=== PATIENT | female | born 1970 | race Caucasian/White ===

== ENCOUNTER 2017-11-28 10:51 | Emergency (ER) | payer OTHER, SELFPAY ==
[2017-11-28 11:07] VITALS: BP 152/77; PULSE 82; RESP 16; TEMP 37.2; O2SAT 97
--- NOTE | 2017-11-28 11:14 | DI.RAD_ITS ---
SYMPTOM/DIAGNOSIS: PAIN, S/P FALL RIGHT HAND: Three views were obtained. There is a fracture of the base of the proximal phalanx of the little finger with mild displacement. No additional fracture is seen.
--- NOTE | 2017-11-28 11:17 | W.ED.GENAD ---
Discharge Plan Disposition Patient Disposition: HOME Condition: Stable Discharge Details Chief Complaint: Orthopedic Clinical Impression: Closed fracture of phalanx of right little finger Primary Care Provider: Efraín Bateman ED Provider: Dariel Cooper Home Meds and New Rx's Prescriptions: No Action No Known Home Meds RF: 0 Discharge Instructions Instructions: Finger Fracture (ED) Additional Instructions: call orthopedics Wednesday for an appointment you can take 1000mg tylenol and 600mg ibuprofen every 6 hours for pain as needed Referrals: Ronny Lombardi MD [ [facility] STAFF PHYSICIAN] - Discharge Data Discharge Physician: Dariel Cooper Medical Decision Making PAtient was playing soccer when she tripped and landed on her right hand. Denies hitting her head or having loc. HAs no pain in wrist even on rom and no snuffbox tenderness so doubt injury to the wrist. Will xray the hand to eval for fx though I suspect contusion xray on my read shows proximal pinky fracture. placed in splint, will have her f/u with ortho Differential Diagnosis sprain, strain, contusion HPI General Mode of arrival: ambulatory. Date/Time Provider Initiated Documentation: 11/28/17 11:12. Limitations to Documentation: no limitations. Information obtained by: patient. History of Present Illness 47 year old F presents to the emergency department with the chief complaint of right hand pain, described as moderate, with intensity rated at 5. Quality is described as aching, and is localized to the right and upper extremity. Patient reports no radiation. Patient started experiencing this hour(s) (1) and it has been constant. No relieving factors improve symptom(s), No exacerbating factors reported . Patient notes no other symptoms.. Patient did receive the following treatments prior to arrival, none Related Data Home Medications Medication Instructions Recorded Confirmed Unknown [No Known Home Meds] 11/28/17 11/28/17 Allergies Allergy/AdvReac Type Severity Reaction Status Date / Time Sulfa (Sulfonamide Allergy Intermediate Hives Unverified 11/28/17 11:11 Antibiotics) General Stated Complaint: Orthopedic IZZY: 4 Review of Systems Review of Systems All systems reviewed & are unremarkable except as noted in HPI and below Constitutional Denies chills and Denies fever(s) Cardiovascular Denies dyspnea Respiratory Denies dyspnea Gastrointestinal Denies vomiting Musculoskeletal Denies joint swelling Integumentary/Breasts Denies rash Hematologic/Lymphatic Denies easy bleeding PFSH Family History Mother Heart disease Hyperlipidemia Father Hyperlipidemia Sister Heart disease Sister Substance abuse Heart disease Brother Heart disease Son No problems noted. Daughter Depression FAMILY HISTORY Neoplasm Medical History RUQ pain Social History Smoking/Tobacco Use Status: Current every day Surgical History Cholecystectomy (05/28/16) Exam Const General: no acute distress Orientation: alert HENMT Head: normal to inspection Ears: external ears normal General nose exam: external nose normal Mouth: moist mucous membranes Eyes General: appearance normal, both eyes and all related structures Neck Neck: normal visual inspection Resp Effort & Inspection: normal respiratory effort and able to speak in complete sentences Cardio Rate: regular rate Skin General skin exam: no rashes or lesions noted Neuro General: alert and oriented x3 Extrem General: normal to inspection, full ROM, normal capillary refill and other (tenderness to mid 5th metatarsal and proximal right pinky, full rom of the wrist without pain and no snuffbox tenderness, no visible or palpable deformities) Psych Mental Status: mental status grossly normal Course Vital Signs Temperature 37.2 C 11/28/17 11:07 Pulse 82 11/28/17 11:07 Respiratory Rate 16 11/28/17 11:07 Blood Pressure 152/77 H 11/28/17 11:07 Pulse Oximetry 97 11/28/17 11:07 Temperature 37.2 C 11/28/17 11:07 Temperature Source Temporal Artery Scan 11/28/17 11:07 Pulse 82 11/28/17 11:07 Respiratory Rate 16 11/28/17 11:07 Respiratory Effort Non-Labored 11/28/17 11:09 Blood Pressure 152/77 H 11/28/17 11:07 Pulse Oximetry 97 11/28/17 11:07 Oxygen Delivery Method Room Air 11/28/17 11:07 Oxygen Flow Rate 0 11/28/17 11:07 Pain Level 8 11/28/17 11:10
--- NOTE | 2017-11-28 11:22 | ED.GENADUL_ITS ---
Discharge Plan Disposition Patient Disposition: HOME Condition: Stable Discharge Details Chief Complaint: Orthopedic Clinical Impression: Closed fracture of phalanx of right little finger Primary Care Provider: Efraín Bateman ED Provider: Dariel Cooper Home Meds and New Rx's Prescriptions: No Action No Known Home Meds RF: 0 Discharge Instructions Instructions: Finger Fracture (ED) Additional Instructions: call orthopedics Wednesday for an appointment you can take 1000mg tylenol and 600mg ibuprofen every 6 hours for pain as needed Referrals: Ronny Lombardi MD [ [facility] STAFF PHYSICIAN] - Discharge Data Discharge Physician: Dariel Cooper Medical Decision Making PAtient was playing soccer when she tripped and landed on her right hand. Denies hitting her head or having loc. HAs no pain in wrist even on rom and no snuffbox tenderness so doubt injury to the wrist. Will xray the hand to eval for fx though I suspect contusion xray on my read shows proximal pinky fracture. placed in splint, will have her f /u with ortho Differential Diagnosis sprain, strain, contusion HPI General Mode of arrival: ambulatory . Date/Time Provider Initiated Documentation: 11/28/17 11:12 . Limitations to Documentation: no limitations . Information obtained by: patient . History of Present Illness 47 year old F presents to the emergency department with the chief complaint of right hand pain, described as moderate, with intensity rated at 5. Quality is described as aching, and is localized to the right and upper extremity. Patient reports no radiation. Patient started experiencing this hour(s) (1) and it has been constant. No relieving factors improve symptom(s ), No exacerbating factors reported . Patient notes no other symptoms.. Patient did receive the following treatments prior to arrival, none Related Data Home Medications Medication Instructions Recorded Confirmed Unknown [No Known Home Meds] 11/28/17 11/28/17 Allergies Allergy/AdvReac Type Severity Reaction Status Date / Time Sulfa (Sulfonamide Allergy Intermediate Hives Unverified 11/28/17 11:11 Antibiotics) General Stated Complaint: Orthopedic IZZY: 4 Review of Systems Review of Systems All systems reviewed & are unremarkable except as noted in HPI and below Constitutional Denies chills and Denies fever(s) Cardiovascular Denies dyspnea Respiratory Denies dyspnea Gastrointestinal Denies vomiting Musculoskeletal Denies joint swelling Integumentary/Breasts Denies rash Hematologic/Lymphatic Denies easy bleeding PFSH Family History Mother Heart disease Hyperlipidemia Father Hyperlipidemia Sister Heart disease Sister Substance abuse Heart disease Brother Heart disease Son No problems noted. Daughter Depression FAMILY HISTORY Neoplasm Medical History RUQ pain Social History Smoking/Tobacco Use Status: Current every day Surgical History Cholecystectomy (05/28/16) Exam Const General: no acute distress Orientation: alert HENMT Head: normal to inspection Ears: external ears normal General nose exam: external nose normal Mouth: moist mucous membranes Eyes General: appearance normal, both eyes and all related structures Neck Neck: normal visual inspection Resp Effort & Inspection: normal respiratory effort and able to speak in complete sentences Cardio Rate: regular rate Skin General skin exam: no rashes or lesions noted Neuro General: alert and oriented x3 Extrem General: normal to inspection, full ROM, normal capillary refill and other ( tenderness to mid 5th metatarsal and proximal right pinky, full rom of the wrist without pain and no snuffbox tenderness, no visible or palpable deformities) Psych Mental Status: mental status grossly normal Course Vital Signs Temperature 37.2 C 11/28/17 11:07 Pulse 82 11/28/17 11:07 Respiratory Rate 16 11/28/17 11:07 Blood Pressure 152/77 H 11/28/17 11:07 Pulse Oximetry 97 11/28/17 11:07 Temperature 37.2 C 11/28/17 11:07 Temperature Source Temporal Artery Scan 11/28/17 11:07 Pulse 82 11/28/17 11:07 Respiratory Rate 16 11/28/17 11:07 Respiratory Effort Non-Labored 11/28/17 11:09 Blood Pressure 152/77 H 11/28/17 11:07 Pulse Oximetry 97 11/28/17 11:07 Oxygen Delivery Method Room Air 11/28/17 11:07 Oxygen Flow Rate 0 11/28/17 11:07 Pain Level 8 11/28/17 11:10
== END 2017-11-28 12:14 | disposition home or self-care (01) ==
PROVIDERS: Emergency Provider Emergency Medicine; PCP Family Medicine
DX: S62.646A Nondisplaced fracture of proximal phalanx of right little finger, initial encounter for closed fracture (principal); W01.0XXA Fall on same level from slipping, tripping and stumbling without subsequent striking against object, initial encounter
CPT/HCPCS: 26750; 73130

== ENCOUNTER 2017-12-03 08:50 | Outpatient (CLI) | payer OTHER, SELFPAY ==
--- NOTE | 2017-12-03 08:46 | DI.RAD_ITS ---
SYMPTOM/DIAGNOSIS: F/U FX RIGHT LITTLE FINGER; Three views were obtained and again show a nondisplaced fracture of the base of the proximal phalanx of the little finger with no change in alignment in comparison with examination of 11/28.
== END 2017-12-03 09:10 ==
PROVIDERS: PCP Family Medicine; Visit Provider Physician Assistant
DX: S62.646D Nondisplaced fracture of proximal phalanx of right little finger, subsequent encounter for fracture with routine healing (principal)
CPT/HCPCS: 73140

== ENCOUNTER 2017-12-08 09:38 | Outpatient (CLI) | payer OTHER, SELFPAY ==
--- NOTE | 2017-12-08 09:32 | DI.RAD_ITS ---
SYMPTOM/DIAGNOSIS: F/U FX RIGHT FIFTH FINGER: Comparison is made with right hand dated 11/28/17. There has been no change in the alignment of the fracture of the proximal phalanx which shows some interval healing.
== END 2017-12-08 09:58 ==
PROVIDERS: PCP Family Medicine; Visit Provider Student in an Organized Health Care Education/Training Program
DX: S62.646D Nondisplaced fracture of proximal phalanx of right little finger, subsequent encounter for fracture with routine healing (principal)
CPT/HCPCS: 73140

== ENCOUNTER 2017-12-22 08:32 | Outpatient (CLI) | payer OTHER, SELFPAY ==
--- NOTE | 2017-12-22 08:20 | DI.RAD_ITS ---
SYMPTOM/DIAGNOSIS: F/U FX RIGHT LITTLE FINGER: A nondisplaced fracture of the proximal metaphysis of the proximal phalanx of the right fifth finger is noted with no interval change when compared with the prior study of 12/03/17.
== END 2017-12-22 08:52 ==
PROVIDERS: PCP Family Medicine; Visit Provider Student in an Organized Health Care Education/Training Program
DX: S62.646D Nondisplaced fracture of proximal phalanx of right little finger, subsequent encounter for fracture with routine healing (principal)
CPT/HCPCS: 73140

== ENCOUNTER 2018-06-15 01:14 | Outpatient (CLI) | payer OTHER, SELFPAY ==
--- NOTE | 2018-06-15 16:00 | DI.MAMMO_ITS ---
SYMPTOM/DIAGNOSIS: SCREENING, Z12.31 MAMMOGRAMS: Mammograms were interpreted according to the usual protocol including computer analysis with CAD system, tomosynthesis and C view imaging. The breasts are of moderate density with fairly symmetrical distribution of fibroglandular tissue. No dominant mass or clumped microcalcification is identified in either breast. The current examination is compared with previous examinations including 02/2016 and there has been no gross interval change in appearance in comparison with the previous studies. CONCLUSION: No specific evidence of malignancy at this time. Routine screening examinations are suggested at yearly intervals due to the family history of breast carcinoma. Category 1. Breast density, category B. MQSA ASSESSMENT OF FINDINGS: Negative. Category 1. Patient will receive a letter notifying them of these results. BI-RADS category B. There are scattered areas of fibroglandular density.
== END 2018-06-15 01:34 ==
PROVIDERS: PCP Family Medicine; Visit Provider Family Medicine
DX: Z12.31 Encounter for screening mammogram for malignant neoplasm of breast (principal); Z80.3 Family history of malignant neoplasm of breast
CPT/HCPCS: 77063; 77067

== ENCOUNTER 2018-10-31 16:01 | Outpatient (REF) | payer OTHER, SELFPAY ==
--- NOTE | 2018-10-31 13:30 | SKI_PTH ---
PATIENT: Indira Tyler LOC: [facility] U#:[id number] AGE/SX: 48/F ROOM: RE10/31/[address]: Ligia Mcmahon MD : 1970 BED: DIS: 10/31/2018 SPEC #: [id number] RECD: 10/31/18 18:24 STATUS: ЮЛИЯ REQ #: [id number] ENEDELIA: 10/31/18 13:[address]: Ligia Mcmahon DEPT: Surgical Specimen RECD BY: Anne Trivedi ENTERED: 10/31/18 18:24 SP TYPE: LORA FERMIN DR: Efraín Bateman MD Tissues: 1 - SKIN CYST/TAG/DEBRIDEMENT Procedures: SKIN BIOPSY LEVEL 3 Comments: [id number]
== END 2018-10-31 16:21 ==
LOC: LBN 16:01
PROVIDERS: PCP Family Medicine; Visit Provider Surgery
DX: L72.8 Other follicular cysts of the skin and subcutaneous tissue (principal); L90.5 Scar conditions and fibrosis of skin
CPT/HCPCS: 88304

== ENCOUNTER 2019-07-23 14:57 | Emergency (ER) | payer OTHER, SELFPAY ==
--- NOTE | 2019-07-23 14:57 | W.ED.GENAD ---
Discharge Plan Disposition Patient Disposition: HOME Condition: Good Discharge Details Chief Complaint: Orthopedic Clinical Impression: Contusion of foot Primary Care Provider: Efraín Bateman ED Provider: Mónica Albarran Home Meds and New Rx's Prescriptions: No Action No Known Home Meds RF: 0 Discharge Instructions Instructions: Foot Contusion (ED) Additional Instructions: Encourage rest, ice, elevation. Tylenol and/or ibuprofen as needed for discomfort. Please continue postoperative shoe and crutches while pain persists. You may advance to your typical foot wear and ambulation as tolerated. If develop new or worsening symptoms please seek care urgently once again. Otherwise, please follow-up with primary care in 1 to 2 weeks if not improved. Stand Alone Forms: Work Release Referrals: Efraín Bateman. [Primary Care Provider] - Medical Decision Making Patient is a pleasant 48-year-old female presenting today with chief complaint of left foot pain. She reports a prior to arrival she had been stacking wood when a proximally 1 foot segment of cut firewood fell approximately 3 feet landing on her dorsal aspect of her left foot. She reports that she was wearing flip-flops at the time of the incident. Suffered a curvilinear abrasion ecchymotic area. Reports the pain is severe. Is not taking anything for her discomfort. She reports her last tetanus was within the last 2 years. Does endorse some tingling along the lateral aspect but no numbness. Denies previous fracture or injury to this foot. Denies other injuries in the incident. No pain in the ankle. On exam, patient does have the area of ecchymosis and abrasion. She is able to move her toes. She has brisk capillary refill. The area of ecchymosis and discomfort is right open ulcer elevating this was difficult. She is full range of motion of the ankle with no tenderness. She does endorse pain on the plantar surface as well with palpation but no signs of trauma here. Plan for imaging of the foot. She is currently elevating and icing. Will give Tylenol and ibuprofen to help discomfort. FINDINGS: Bones/joints: Enthesopathy at the insertion of the Achilles tendon.Plantar calcaneal spur. No acute fracture or dislocation.. Soft tissues: Normal. IMPRESSION: No acute finding. Testes findings with the patient. Patient has minimal swelling and has not had a change in the bruising pattern. Do not see any evidence of arterial or venous injury. This does not extend up to suggest compartment syndrome. Rather, this seems more consistent with a crush injury and likely shearing causing increased discomfort. She is crying and continues to rate her pain a 10 out of 10 despite Tylenol, ibuprofen and ice. We will augment this with oxycodone although I did discuss risk and benefit of this with her and I am concerned with continued use of this in a more minor injury. We will give the patient in the department for monitoring of this and to be able to reevaluate her discomfort. Patient pain is now down to a 5 out of 10. She believes this is more from taking the ice off of her foot than the oxycodone. We will give postoperative shoe to help with immobilization as well as crutches to help with ambulation. I did advise that she may advance out of these as tolerated as there is not appear to be a reason to limit her mobility. Rather, were restricting her slightly to help with discomfort. I encouraged rest, ice, elevation. Tylenol and/or ibuprofen as needed for discomfort. Work note was given at patient's request. She was given return precautions. Advise follow-up with primary care in the next 1 to 2 weeks if not improving. All of her questions and concerns were addressed and she is in agreement this plan. HPI General Mode of arrival: ambulatory. Date/Time Provider Initiated Documentation: 07/23/19 14:57. Limitations to Documentation: no limitations. Information obtained by: patient and RN notes reviewed. History of Present Illness 48 year old F presents to the emergency department with the chief complaint of left foot pain, described as severe, with intensity rated at 10. Quality is described as crushing, and is localized to the left and lower extremity. Patient reports no radiation. Patient started experiencing this minute(s) and it has been constant. Immobilization improves symptom(s), Movement worsens symptoms . Patient notes no other symptoms.. Patient did receive the following treatments prior to arrival, cold therapy Related Data Home Medications Medication Instructions Recorded Confirmed Unknown [No Known Home Meds] 10/31/18 07/23/19 Allergies Allergy/AdvReac Type Severity Reaction Status Date / Time Sulfa (Sulfonamide Allergy Intermediate Hives Verified 07/23/19 15:05 Antibiotics) black flies Allergy Severe SEVERE Uncoded 07/23/19 15:05 SWELLING, ITCHING General IZZY: 4 Review of Systems Constitutional Constitutional: Reports as per HPI, Denies chills, Denies fever(s), Denies headache(s) and Denies weakness ENT Ears, Nose, Mouth, and Throat: Denies headache(s) Cardiovascular Cardiovascular: Reports as per HPI Respiratory Respiratory: Reports as per HPI and Denies cough Musculoskeletal Musculoskeletal: Reports as per HPI and Denies tingling Integumentary/Breasts Skin/Breast: Reports as per HPI, Denies rash and Denies wounds Neurologic Neurologic: Reports as per HPI, Denies headache(s), Denies tingling, Denies paresthesias and Denies weakness PFSH Medical History RUQ pain Surgical History Cholecystectomy (05/28/16) Social History Smoking/Tobacco Use Status: Current every day Tobacco Type: cigarettes Tobacco: How many years used: 30 Quit status: considering quitting Alcohol Intake: current Alcohol Intake frequency: a few times a week Alcohol type: beer Drug use: Never Substance use type: does not use Caregiver/Support person: No Household members: significant other and children Housing: house Communication Needs: None Do you need help understanding health information?: Never Pets and animals: Yes Pets and animals: cat(s) Sexually active: Yes Do you think of yourself as: straight/heterosexual Current gender identity: decline to answer What is your relationship status?: living with partner How often do you talk on the phone with friends or family?: three or more times per week How often do you get together with friends or relatives?: three or more times per week How often do you attend taoist or tenriism services?: decline to answer Do you belong to any clubs or organized social groups?: yes Panel score (0-1 are the most socially isolated patients): 3 What type of physical activity do you participate in: walking Duration: 15-30 minutes/day Frequency: daily Tori/Orthodox: Zoroastrianism Special tori needs: No Seatbelt use: sometimes Helmet use: No Drive intox or ride w/intox otr owner operator truck driver: No Do you feel safe at home: Yes Do you feel safe in your relationship?: Yes Exam Const General: cooperative, healthy appearing, uncomfortable, no acute distress, well developed and well groomed Nutritional Appearance: well nourished and overweight Orientation: alert and awake Resp Effort & Inspection: normal respiratory effort, able to speak in complete sentences and no respiratory distress Cardio Rate: regular rate Rhythm: regular rhythm Skin General skin exam: ecchymosis (curvilinear ecchymotic area dorsal left foot, superficial abrasions) Neuro General: patient alert and patient awake Cognition: normal cognition Speech: speech normal Gait: normal gait Motor: muscle tone normal throughout Sensory Exam: no sensory deficits noted Extrem Ankle/foot/toe images: 1. curvilinear ecchymotic area. No palpable deformity. Surrounding more faint ecchymotic area. Light touch sensation intact. Brisk capillary refill. Difficult to palpate DIP as paitent is so tender in this area. No pain over proximal 5th metatarsal. Full ROM of ankle. Pain with palpation of the plantar aspect, no evidence of trauma of this area Psych Appearance: grossly normal and well kempt Mental Status: mental status grossly normal Speech and Movement: speech and movement normal
[2019-07-23 15:02] VITALS: BP 162/76; PULSE 78; RESP 18; TEMP 36.4; O2SAT 99
[2019-07-23] MEDS: Acetaminophen 500 MG TAB 1000 MG PO (15:17)
[2019-07-23] MEDS: Ibuprofen 600 MG TAB PO (15:17)
--- NOTE | 2019-07-23 15:37 | DI.RAD_ITS ---
EXAM: XR FOOT LT COMPLETE CLINICAL HISTORY: section of log dropped on top of foot. TECHNIQUE: 2D digital imaging was performed. COMPARISON: No exams were available for comparison FINDINGS: BONES: No acute fracture is present. No bony destructive lesion is seen. There is an enthesophyte at the Achilles insertion site. There is a calcaneal spur. JOINTS: No dislocation present. SOFT TISSUE: Normal. IMPRESSION: No acute fracture or dislocation. DATA REPOSITORY: RADIATION DOSE DELIVERED:
--- NOTE | 2019-07-23 16:04 | DI.VRAD_ITS ---
PROCEDURE INFORMATION: Exam: XR Left Foot Complete Exam date and time: 07/23/2019 3:28 PM Age: 48 years old Clinical indication: Other: Section of log dropped on top of foot TECHNIQUE: Imaging protocol: XR Left foot. Views: 3 or more views. COMPARISON: No relevant prior studies available. FINDINGS: Bones/joints: Enthesopathy at the insertion of the Achilles tendon.Plantar calcaneal spur. No acute fracture or dislocation.. Soft tissues: Normal. IMPRESSION: No acute finding. Dictated and Authenticated by: Ihsan Vo MD. Ordering:RACHEL Sales MD
[2019-07-23] MEDS: oxyCODONE 5 MG TAB PO (16:28)
[2019-07-23 16:55] VITALS: BP 142/72; PULSE 70; RESP 18; O2SAT 97
[2019-07-23 17:04] VITALS: BP 142/72; PULSE 70; RESP 18; O2SAT 97
== END 2019-07-23 17:00 | disposition home or self-care (01) ==
PROVIDERS: Emergency Provider Physician Assistant; PCP Family Medicine
DX: S97.82XA Crushing injury of left foot, initial encounter (principal); S90.812A Abrasion, left foot, initial encounter; W20.8XXA Other cause of strike by thrown, projected or falling object, initial encounter
CPT/HCPCS: 29515; 99283; 73630; 99284; E0114

== ENCOUNTER 2020-02-20 03:25 | Outpatient (CLI) | payer OTHER, SELFPAY ==
[2020-02-20 12:09] LABS: CREATININE 0.96 mg/dL (0.55-1.02)
[2020-02-20 12:15] LABS: Calculated LDL 133 mg/dL (<100); Cholesterol 201 mg/dL (<200); HDL Cholesterol 49 mg/dL (40-60); Triglyceride 96 mg/dL (<150)
== END 2020-02-20 03:45 ==
PROVIDERS: Emergency Medicine; PCP Family Medicine; Visit Provider Podiatrist Foot & Ankle Surgery
DX: R22.41 Localized swelling, mass and lump, right lower limb (principal); E78.5 Hyperlipidemia, unspecified
CPT/HCPCS: 36415; 80061; 82565

== ENCOUNTER 2020-03-21 01:58 | Outpatient (CLI) | payer OTHER, SELFPAY ==
[2020-03-22 15:31] LABS: COVID-19 RT-PCR UVMMC Result Negative (Negative)
== END 2020-03-21 01:59 | disposition home or self-care (01) ==
LOC: LBO 01:59
PROVIDERS: PCP Family Medicine; Visit Provider Podiatrist Foot & Ankle Surgery
DX: Z20.822 Contact with and (suspected) exposure to COVID-19 (principal); Z01.818 Encounter for other preprocedural examination
CPT/HCPCS: U0003

== ENCOUNTER 2020-06-14 17:01 | Outpatient (REF) | payer OTHER, SELFPAY ==
[2020-06-16 10:58] LABS: COVID-19 RT-PCR UVMMC Result Negative (Negative)
== END 2020-06-14 17:02 | disposition home or self-care (01) ==
LOC: NCHCN 17:01
PROVIDERS: PCP Family Medicine; Visit Provider Family Medicine
DX: Z20.822 Contact with and (suspected) exposure to COVID-19 (principal)
CPT/HCPCS: U0003

== ENCOUNTER 2020-06-18 01:39 | Outpatient (CLI) | payer OTHER, SELFPAY ==
--- NOTE | 2020-06-18 07:00 | DI.MAMMO_ITS ---
Exam(s) MAMMO SCREENING EXAM: MAMMO SCREENING CLINICAL HISTORY: screening,Z12.39 TECHNIQUE: Bilateral full field digital CC and MLO mammographic images were obtained with 3D tomosyn thesis and utilizing computer aided detection (CAD). COMPARISON: Available for comparison. FINDINGS: Masses/Architectural Distortion: None seen. Microcalcifications: No suspicious pleomorphic-type are seen. Skin Thickening/Nipple Retraction: None. IMPRESSION: 1. No significant interval change with no specific features of malignancy noted. 2. Unless there is more urgent need, screening mammography is recommended, as per [employer] [place] [employer] guidelines. BI-RADS Category 1 - Negative Breast Density - Category B - Scattered areas of fibroglandular density Breast density category C or D implies that the patient has dense breast tissue. Dense breast tissue is very common and is not abnormal but dense breast tissue can make it harder to find cancer on a ma mmogram. Also, dense breast tissue may increase their breast cancer risk. This information about the result of the mammogram report was provided to the patient to raise their awareness. Use this report when you speak with the patient about their risks for breast cancer, which includes their family hist ory. At that time, you may recommend for more screening tests (Ultrasound or MRI) as they might be us eful based on their risk. A negative radiographic report should not delay biopsy if a dominant or clinically suspicious mass is present. Up to ten percent of cancers are not identified on mammography. A negative report may reinforce clinical impression. Adenosis and dense breasts may obscure an underlying neoplasm. False positive reports average 6 to 10%. Patient will receive a letter notifying them of these results.
== END 2020-06-18 01:59 ==
PROVIDERS: PCP Family Medicine; Visit Provider Family Medicine
DX: Z12.31 Encounter for screening mammogram for malignant neoplasm of breast (principal)
CPT/HCPCS: 77063; 77067

== ENCOUNTER 2020-11-27 03:34 | Outpatient (CLI) | payer OTHER, SELFPAY ==
[2020-11-27 12:37] LABS: Source Nasal/Nares
[2020-11-28 05:10] LABS: COVID-19 PCR Negative (Negative)
== END 2020-11-27 03:35 | disposition home or self-care (01) ==
LOC: LBO 03:34
PROVIDERS: PCP Family Medicine; Visit Provider Surgery
DX: Z20.822 Contact with and (suspected) exposure to COVID-19 (principal)
CPT/HCPCS: 87635

== ENCOUNTER 2020-11-29 09:19 | Day surgery (SDC) | payer OTHER, SELFPAY ==
--- NOTE | 2020-11-28 11:54 | W.COLOREPORT ---
Colonoscopy Report Date of procedure: 11/29/20 Pre-op diagnosis general: CRC screen Post-op diagnosis procedure note: other (polyp) Surgeon: Donna Taylor Anesthesia Type: General LMA/ETT Estimated blood loss (mL): 2 Pathology: other Complications: None Disposition: same day Prep: Miralax/Dulcolax Retraction Time: 10 Procedure Description: After informed consent was obtained the patient was taken to the procedure room and placed in a left decubitous position. Monitors were applied and a time out was done. The patients name, date of , procedure, allergies to medications and metal in their body was reviewed. The patient was then sedated. Once sedated and comfortable a rectal exam was done. External exam was normal. Internal exam revealed a normal sphincter tone and no palpable masses. The scope was then introduced and retrofelexed. No internal hemorrhoids were identified. The scope was then advanced to the cecum without difficulty. The TI and appendiceal orifice were identified. The prep was good. The scope was then slowly retracted over minutes back into the rectum.. Flat 5 mm polyp in the rectum. This is removed by hot biting forcep. Otherwise the colon appears normal today. There are no diverticula or polyps other polyps visualized.. The scope was removed and the patient was woken up and taken back to Same day surgery in stable condition. The patient tolerated the procedure well and there were no immediate complications. Follow up: The patient should follow up in 5-10 years unless they develop changes in bowel habits or other new gastrointestinal complaints.
--- NOTE | 2020-11-28 11:55 | PDOC.DSDIS_ITS ---
Discharge Plan Disposition Patient Disposition: HOME Condition: Good Discharge Details Reason For Visit: colon scope Attending Provider: Donna Taylor Primary Care Provider: Efraín Bateman Home Meds and New Rx's Prescriptions: Discontinued polyethylene glycol 3350 17 gram/dose powder 238 g PO ONCE Qty: 238 RF: 0 bisacodyl [Dulcolax (bisacodyl)] 5 mg tablet,delayed release (DR/EC) 5 mg PO ONCE Qty: 4 RF: 0 Discharge Instructions Additional Instructions: DSU Colonoscopy Post- Op Instructions Instructions for Everyone who is given Anesthesia: For your safety, please do the following for the next twenty-four (24) hours: *Do Not operate a motor vehicle (car, truck, motorcycle, etc.) *Do Not drink alcoholic beverages or use any recreational drugs for the first 24 hours or while taking pain medications. The medications in your body may have a reaction that can be dangerous. *Do Not make any important decisions or sign any important papers. Findings: Small polyp in the rectum. Otherwise normal Follow up: My office will send a letter in 2 to 3-week's time, detailing as to what type of polyp it was and when we want to repeat the colon. 1. No lifting over 20 pounds or strenuous activity for the first 24 hours after your procedure. After 24 hours there are no restrictions on your activity but you may feel fatigued for a few days. 2. After you arrive home you may have a light meal and return to your normal diet as you can tolerate it without feeling sick to your stomach. 3. You may have a bloated, gaseous feeling in your belly (abdomen) after a colonoscopy. Passing gas and belching will help. Walking or lying down on your left side with your knees flexed may relieve the discomfort. Call the office at [phone] (Office) or [phone] (Hospital) right away if you notice any of the following: a.Vomiting of blood or ?coffee ground stools?. b.Rectal bleeding 1Tbsp, blood clots or continuous bleeding. c.Severe belly (abdominal) pain. d.A hard distended belly (abdomen) and an inability to pass gas. 4. Please don?t expect to have a normal BM (bowel movement) for 2-3 days after your procedure. 5. If there are questions regarding the findings of your procedure, please contact your doctor 6. If you are unable to contact your doctor with a problem, contact the hospital at [phone]. 7. Continue all your regular medications unless directed otherwise. I understand the above instructions and have no questions. Signature of Patient or Adult Escort Name of Responsible Adult Escort Signature of Nurse Date/Time Activity:: see above Diet:: see above Discharge Orders Discharge Orders: Discharge Order (Routine); Ordered 11/28/20 Ordered By: Donna Taylor DS: Diagnosis Discharge Diagnosis (1) Colon cancer screening: Status: Acute (2) Colon polyp: Status: Acute
[2020-11-29 09:34] VITALS: BP 131/73; PULSE 79; RESP 16; TEMP 35.9; O2SAT 97
[2020-11-29] MEDS: Lactated Ringers 1,000 ML 80 ML IV (09:45)
--- NOTE | 2020-11-29 10:10 | W.ANESPRE ---
General Info Date of Service Date Performed: 11/29/20 Height: 5 ft 3 in Weight: 95.9 kg Body Mass Index (BMI): 37.4 Surgical Procedure: Operation Date: 11/29/20 09:50 Proposed Procedures Side Surgeon vivian Taylor, Meds Allergies and Home Medications Allergies Allergy/AdvReac Type Severity Reaction Status Date / Time Sulfa (Sulfonamide Allergy Intermediate Hives Verified 11/29/20 09:33 Antibiotics) black flies Allergy Severe SEVERE Uncoded 11/29/20 09:33 SWELLING, ITCHING Current Visit Medications: Current Medications Generic Name Dose Route Start Last Admin Trade Name Freq PRN Reason Stop Dose Admin Ringer's Solution 1,000 mls @ 80 mls/hr 11/29/20 06:00 11/29/20 09:45 IV 12/28/20 23:59 80 mls/hr INFUSION BRADY Administration IV Miscellaneous Supplies 1 each 11/29/20 06:00 Iv Access IV 12/28/20 23:59 DIRECTED BRADY Ondansetron HCl 4 mg 11/28/20 11:52 Ondansetron 4 Mg/2 Ml Vial IVP Q4H PRN PRN Nausea / Vomiting Sodium Chloride 0 ml 11/29/20 06:00 Normal Saline Flush 10 Ml Syr IV 12/28/20 23:59 PRN PRN Sodium Chloride 0 ml 11/29/20 06:00 Normal Saline 10 Ml Vial IJ 12/28/20 23:59 DIRECTED PRN Sterile Water 0 ml 11/29/20 06:00 Water,Injection,Sterile 10 Ml Vial IJ 12/28/20 23:59 DIRECTED PRN PFSH Active Problems Active Problems: Problem Status Onset Code Colon cancer screening Z12.11 Overweight 02/18/17 E66.3 Fracture of proximal phalanx of right little finger S62.616A Encounter for annual physical exam Z00.00 Localized superficial swelling, mass, or lump R22.9 Well adult Bunion M21.619 Physical exam Z00.00 Screening for colon cancer Z12.11 Medical History Medical History History of seizures pt. states she has seizures up until the age of 17, has not had one since. RUQ pain Surgical History Surgical History Cholecystectomy (05/28/16) History of hysterectomy Tobacco Smoking/Tobacco Use Status: Current every day Tobacco Type: cigarettes Tobacco: How many years used: 30 Passive smoking exposure: Yes Quit Status: considering quitting Alcohol Alcohol Intake: current Alcohol intake frequency: a few times a month Alcohol type: beer Substance Use Substance use: Never Substance use type: does not use Vital Signs and Lab Results Vital Signs Most Recent Vital Signs in EMR: Most Recent Vital Signs Temp Pulse Resp BP Pulse Ox 35.9 C L 79 16 131/73 97 11/29/20 09:34 11/29/20 09:34 11/29/20 09:34 11/29/20 09:34 11/29/20 09:34 Lab Results Blood Type / Crossmatch: No Data to Display Complete Blood Count: No Data to Display Complete Metabolic Panel: No Data to Display Liver Function Panel: No Data to Display Coagulation Panel: No Data to Display Cardiac Panel: No Data to Display Arterial Blood Gas: No Data to Display Venous Blood Gas: No Data to Display Pancreas Panel: No Data to Display Thyroid Panel: No Data to Display Infectious Disease: Coronavirus (COVID-19)(PCR) Negative (Negative) 11/27/20 10:35 11/27/20 Coronavirus 2019 Source Nasal/Nares 11/27/20 10:35 11/27/20 Blood Cultures: No Data to Display Toxicology Panel: No Data to Display Panel: No Data to Display Anesthesia Assessment and Plan Anesthesia History Personal History: No History of Anesthesia Complications Family History: No Family History of Anesthesia Complications Exercise Tolerance Exercise Tolerance: Metabolic Equivalents>4 Pertinent Negatives Pertinent Negatives: No Symptoms of GERD, No Major Cardiovascular Symptoms or Complaints and No Major Pulmonary Symptoms or Complaints Cardiac & Pulmonary Exam Cardiac Exam: Normal S1/S2 Heart Sounds Pulmonary Exam: Clear Bilateral Breath Sounds Airway Exam Known Difficult Airway: No Mallampati Class: 2 Mouth Opening: Normal (> 3cm) Thyromental Distance: Greater than 3 cm Neck Range of Motion: Full ROM Neck Circumference: Normal Teeth Condition: Normal Dentition ASA Classification ASA Score: ASA 2 Emergency Case?: No NPO Status NPO Status: NPO Clears >2 hours, Solids >8 hours Status Status: Not Relevant due to Medical History Anesthesia Plan Resuscitation Status: Full Code Anesthesia Technique: General Anesthesia Airway Planned: Natural Airway Monitors Used: Standard Monitors
[2020-11-29 10:26] VITALS: BMI 37.4
--- NOTE | 2020-11-29 11:22 | BOWEL_PTH ---
PATIENT: Indira Tyler LOC: [facility] U#:[id number] AGE/SX: 50/F ROOM: RE11/29/[address]: Donna Taylor : 1970 BED: DIS: 11/29/2020 SPEC #: [id number] RECD: 11/29/20 16:43 STATUS: ЮЛИЯ REQ #: [id number] ENEDELIA: 11/29/20 11:[address]: Donna Taylor DEPT: Surgical Specimen RECD BY: Pam Mccartney ENTERED: 11/29/20 16:44 SP TYPE: Bowel OTHR DR: Efraín Bateman MD Tissues: 1 - BIOPSY BOWEL Procedures: GROSS AND MICRO LEVEL 4 Comments: [id number]
[2020-11-29 11:33] VITALS: BP 110/58; PULSE 67; RESP 18; TEMP 36.2; O2SAT 95
[2020-11-29 12:03] VITALS: BP 120/72; PULSE 56; RESP 16; TEMP 36.3; O2SAT 16
--- NOTE | 2020-11-29 12:21 | W.ANESPOSTOP ---
Postoperative Evaluation Date, Time and Location Date Performed: 11/29/20 Time Performed: 12:21 Patient Location: Day Surgery Unit Vital Signs Most Recent Imported Vital Signs: Most Recent Vital Signs Temp Pulse Resp BP Pulse Ox 36.3 C L 56 L 16 120/72 16 L 11/29/20 12:03 11/29/20 12:03 11/29/20 12:03 11/29/20 12:03 11/29/20 12:03 Pain Score Most Recent Pain Score: Most Recent Pain Score Pain Level 0 11/29/20 12:03 Assessment Mental Status: Awake (Alert & Oriented to Patient Baseline) Airway and Respiratory Function: Patent airway with normal (patient baseline) respiratory exam Cardiovascular Function: Hemodynamically Stable Hydration Status: Adequately Hydrated Nausea & Vomiting: No Nausea or Vomiting Pain: Pt. Denies Any Pain Peripheral Nerve Block: Patient did not receive a nerve block
== END 2020-11-29 12:25 | disposition home or self-care (01) ==
PROVIDERS: PCP Family Medicine; Visit Provider Surgery
PROC: 0DJD8ZZ Inspection of Lower Intestinal Tract, Via Natural or Artificial Opening Endoscopic (ICD-10-PCS; CPT 45378; principal; 2020-11-29 09:45)
DX: Z12.11 Encounter for screening for malignant neoplasm of colon (principal); K62.1 Rectal polyp
CPT/HCPCS: 45384; 88305